=== PATIENT | female | born 1950 | race Hispanic/Latino ===

== ENCOUNTER 2017-08-26 01:42 | Inpatient (IN) | payer MEDICARE, MEDICAID ==
[~2017-08-26] VITALS: Ht 152.4 cm; Wt 81.7 kg
[2017-08-27] VITALS (13 sets, daily range): BP systolic 113–139; BP diastolic 58–76
[2017-08-27] MEDS ORDERED: HYDRALAZINE HCL 20 MG/ML VIAL IV PRN (05:15)
[2017-08-27] MEDS ORDERED: ONDANSETRON HCL 4 MG/2 ML VIAL IV PRN (05:15)
[2017-08-27] MEDS ORDERED: ACETAMINOPHEN 325 MG TAB PO PRN (05:15)
[2017-08-27 05:45] LABS: HEMATOCRIT 38.9 % (36-48); MEAN CORPUSCULAR HGB CONC 33.7 g/dL (32.0-36.0); PLATELET COUNT (AUTO) 273 K/uL (130-400); RED BLOOD CELL COUNT(AUTO) 4.23 MIL/uL (4.00-5.50); RED CELL DISTRIBUTION WIDTH 12.7 % (11.0-15.5); WHITE BLOOD COUNT (AUTO) 8.9 K/uL (4.8-10.8)
[2017-08-27 05:57] LABS: INR 0.94 (0.85-1.15); PARTIAL THROMBOPLASTIN TIME 25.2 SEC (26.3-35.5); PROTHROMBIN TIME 9.9 SEC (9.6-11.6)
[2017-08-27] MEDS: INSULIN LISPRO 100 UNIT/ML 3ML SQ SCH ×3 (06:04→16:30)
[2017-08-27 06:09] LABS: ALBUMIN 3.5 g/dL (3.5-5.0); BILIRUBIN,TOTAL 0.6 mg/dL (0.2-1.0); CREATININE 0.5 mg/dL (0.5-1.5); POTASSIUM 3.7 mmol/L (3.5-5.1); TOTAL PROTEIN, SERUM 7.4 g/dL (6.0-8.3)
[2017-08-27] MEDS ORDERED: OMEP20CA10 PO (06:54)
[2017-08-27] MEDS ORDERED: FOLI1TAB15 PO (06:54)
[2017-08-27] MEDS ORDERED: HYDR-4060 PO (06:54)
[2017-08-27] MEDS ORDERED: SIMV40TA59 PO (06:54)
[2017-08-27] MEDS ORDERED: VALS1TAB79 PO (06:54)
[2017-08-27] MEDS ORDERED: EZET10TA26 PO (06:54)
[2017-08-27] MEDS ORDERED: METF750T2 PO (06:54)
[2017-08-27] MEDS ORDERED: BRIM5DRO OP (06:54)
[2017-08-27] MEDS ORDERED: GABA-531 PO (06:54)
[2017-08-27] MEDS ORDERED: LEFL10TA15 PO (06:54)
[2017-08-27] MEDS ORDERED: ENAL2.5T PO (06:54)
[2017-08-27] MEDS ORDERED: AMLO10TA2 PO (06:54)
[2017-08-27] MEDS ORDERED: CALC-1009 PO (06:54)
[2017-08-27 07:33] LABS: BASOPHILS % (MANUAL) 2 % (0-2); LYMPHOCYTES % (MANUAL) 45 % (22-44); MAN.DIFF COMMENT-IMPRESSION MANUAL DIFFERENTIAL; MONOCYTES % (MANUAL) 6 % (2-9); PLATELET MORPHOLOGY COMMENT ADEQUATE; SEGMENTED NEUTROPHILS % 47 % (40-70)
[2017-08-27] MEDS ORDERED: FAMOTIDINE 20MG TAB 20 MG TAB PO SCH (09:00)
[2017-08-27] MEDS ORDERED: NITROGLYCERIN 5 MG/ML 10 ML VIAL IV ONE (15:20)
[2017-08-27] MEDS ORDERED: IOPAMIDOL-370 100 ML VIAL IV ONE (15:20)
[2017-08-27] MEDS ORDERED: MIDAZOLAM HCL 1 MG/ML 2ML VIAL ONE (15:20)
[2017-08-27] MEDS ORDERED: BIVALIRUDIN 250 MG/VIAL IV ONE (15:20)
[2017-08-27] MEDS ORDERED: ISOVUE-370 50ML VIAL IV ONE (15:20)
[2017-08-27] MEDS ORDERED: HEPARIN SODIUM 1000UNIT/ML 10ML VIAL ONE (15:20)
[2017-08-27] MEDS ORDERED: LIDOCAINE HCL 2% 20ML ONE (15:21)
[2017-08-27] MEDS ORDERED: MORPHINE SULFATE 2 MG/ML 1ML SYG ONE (15:21)
[2017-08-27] MEDS ORDERED: SODIUM CHLORIDE 0.9% 1000ML 1,000 ML IV SCH (16:07)
== END 2017-08-27 21:49 | disposition home or self-care (01) | DRG 287 ==
LOC: EDHIP 08-27 01:42 → 2AH 08-27 01:47
PROVIDERS: ADMIT Family Medicine; ATTEND Family Medicine
PROC: 4A023N7 Measurement of Cardiac Sampling and Pressure, Left Heart, Percutaneous Approach (ICD-10-PCS; principal; 2017-08-27)
PROC: B2111ZZ Fluoroscopy of Multiple Coronary Arteries using Low Osmolar Contrast (ICD-10-PCS; 2017-08-27)
PROC: B2151ZZ Fluoroscopy of Left Heart using Low Osmolar Contrast (ICD-10-PCS; 2017-08-27)
DX: I25.119 Atherosclerotic heart disease of native coronary artery with unspecified angina pectoris (principal); E11.9 Type 2 diabetes mellitus without complications; E66.9 Obesity, unspecified; E78.5 Hyperlipidemia, unspecified; I10 Essential (primary) hypertension; Z90.710 Acquired absence of both cervix and uterus; Z95.5 Presence of coronary angioplasty implant and graft; Z68.35 Body mass index [BMI] 35.0-35.9, adult; Z88.1 Allergy status to other antibiotic agents
CPT/HCPCS: 36415; 80053; 80061; 82948; 85025; 85610; 85730; 93458; 99152; 99153; C1760; C1894; J0583; J1644; J2250; J3490; Q9967

== ENCOUNTER 2023-11-18 06:50 | Day surgery (SDC) | payer MEDICARE ==
[2023-11-18] VITALS (11 sets, daily range): BP systolic 89–155; BP diastolic 54–74; PULSE 58–76; RESP 13–18
[~2023-11-18] VITALS: Ht 152.4 cm; Wt 88.9 kg
[~2023-11-18 06:50] MED LIST: AMLO-258 PO; BRIM5DRO OP; CALC-1009 PO; ENAL2.5T71 PO; EZET10TA48 PO; FOLI1TAB15 PO; GABA-531 PO; HYDR-4060 PO; LEFL10TA19 PO; METF750T46 PO; OMEP20CA12 PO; SIMV40TA59 PO; VALS1TAB80 PO
[2023-11-18] MEDS ORDERED: DAPA10TA PO (08:02)
[2023-11-18] MEDS ORDERED: LEVO25CA4 PO (08:02)
[2023-11-18] MEDS ORDERED: LOSA1TAB54 PO (08:02)
[2023-11-18] MEDS ORDERED: PRAV40TA3 PO (08:02)
[2023-11-18] MEDS ORDERED: HYDR25TA67 PO (08:02)
[2023-11-18] MEDS ORDERED: AMLO-257 PO (08:02)
[2023-11-18] MEDS: 0.9%NACL 1000ML 1,000 ML IV ONE (08:08)
[2023-11-18] MEDS ORDERED: PROPOFOL 10 MG/ML 20ML VIAL IV ONE (11:23)
== END 2023-11-18 13:15 | disposition home or self-care (01) ==
LOC: ENDO 06:50 → DAH 06:50 → ENDO 13:15
PROVIDERS: ATTEND Internal Medicine Gastroenterology
DX: R93.3 Abnormal findings on diagnostic imaging of other parts of digestive tract (principal); K29.50 Unspecified chronic gastritis without bleeding; K31.A0 Gastric intestinal metaplasia, unspecified; K86.2 Cyst of pancreas; K31.89 Other diseases of stomach and duodenum; R10.12 Left upper quadrant pain; E11.9 Type 2 diabetes mellitus without complications; I10 Essential (primary) hypertension; E78.5 Hyperlipidemia, unspecified; M19.90 Unspecified osteoarthritis, unspecified site; E66.9 Obesity, unspecified; Z68.38 Body mass index [BMI] 38.0-38.9, adult; Z88.8 Allergy status to other drugs, medicaments and biological substances; Z82.49 Family history of ischemic heart disease and other diseases of the circulatory system; Z88.2 Allergy status to sulfonamides; Z79.899 Other long term (current) drug therapy; Z90.49 Acquired absence of other specified parts of digestive tract; Z90.710 Acquired absence of both cervix and uterus
CPT/HCPCS: 43259; 82948 ×2; 43239; J7030; J2704; A4620; A4215; A4223; A7002; A4222; A4221; A4663; A4606; J3490

== ENCOUNTER → 2024-05-04 | Outpatient (CLI) | payer MEDICARE ==
[~2024-05-04] MED LIST changes: +AMLO-257 PO; -AMLO-258 PO; -BRIM5DRO OP; -CALC-1009 PO; +DAPA10TA PO; -ENAL2.5T71 PO; -GABA-531 PO; +GADOTERATE MEGLUMINE 10 MMOL/20 ML VIAL IV ONE; -HYDR-4060 PO; +HYDR25TA67 PO; -LEFL10TA19 PO; +LEVO25CA4 PO; +LOSA1TAB54 PO; -METF750T46 PO; -OMEP20CA12 PO; +PRAV40TA3 PO; -SIMV40TA59 PO; -VALS1TAB80 PO
== END | disposition home or self-care (01) ==
LOC: RAH 08:43
PROVIDERS: ATTEND Internal Medicine Gastroenterology
DX: N28.1 Cyst of kidney, acquired (principal); R93.3 Abnormal findings on diagnostic imaging of other parts of digestive tract
CPT/HCPCS: 74183; A9575

== ENCOUNTER → 2024-12-09 | Outpatient (CLI) | payer MEDICARE ==
[~2024-12-09] MED LIST changes: -GADOTERATE MEGLUMINE 10 MMOL/20 ML VIAL IV ONE; +IOHEXOL 350 MG/ML 100ML INFUS..BTL IV ONE; -LEVO25CA4 PO; +LEVO25CA5 PO
--- NOTE | 2024-12-09 14:22 | HMCIMG ---
CT ABDOMEN WITH CONTRAST Clinical Information: Abnormal findings on diagnostic imaging of othe/ PANCREATIC PROTOCOL Comparison: None Technique: Routine helical scanning at 5mm collimation through the abdomen was performed after oral contrast administration. The examination was done before and after IV contrast administration as well. Intermediate and 7 minute delayed post IV contrast administration images were performed, for adequate contrast distention of the urinary collecting systems, ureters and the urinary bladder. Findings: No evidence of nephro or ureterolithiasis is found. No hydronephrosis or ureteral dilatation is seen. The lung bases are clear. The stomach is unremarkable. There is no evidence of gastric dilatation. No blastic thickening is noted to suggest inflammation or tumor. There is no perforation. There is no gastric outlet obstruction. There is no ulceration. The spleen is unremarkable. It is not enlarged. The pancreas shows normal anatomy. It is not fatty replaced. It shows no lesions. The pancreatic duct is not dilated. Triphasic imaging of the pancreas demonstrates normal anatomy in all 3 phases without evidence of masses or worrisome lesions. The gallbladder is surgically absent. The adrenal glands are unremarkable. There is no enlargement. No lesions are noted. The liver is unremarkable. It shows no focal masses. The visualized segments of large and small bowel appear unremarkable. Postoperative changes of the lumbar spine. IMPRESSION: NEGATIVE CT SCAN OF THE ABDOMEN. NO RENAL STONES. NO ACUTE PATHOLOGY OR INFLAMMATION SEEN. Normal pancreatic scan. This study was performed using dose reduction techniques to include automated exposure control and/or adjustment of the mA and/or kV according to patient size.
== END | disposition home or self-care (01) ==
LOC: RAH 09:23
PROVIDERS: ATTEND Internal Medicine Gastroenterology
DX: R93.3 Abnormal findings on diagnostic imaging of other parts of digestive tract (principal); Z90.49 Acquired absence of other specified parts of digestive tract; Z98.890 Other specified postprocedural states
CPT/HCPCS: 74170; Q9967

== ENCOUNTER → 2025-01-16 | Outpatient (CLI) | payer MEDICARE ==
[~2025-01-16] MED LIST changes: -IOHEXOL 350 MG/ML 100ML INFUS..BTL IV ONE; -PRAV40TA3 PO; +PRAV40TA62 PO
--- NOTE | 2025-01-16 16:48 | HMCIMG ---
UPPER GI TRACT, WO KUB REASON: EPIGASTRIC PAIN. COMPARISON: None TECHNIQUE: Upper GI series was performed. FINDINGS: There is no obstruction to the antegrade passage of barium from mouth through jejunum. A normal esophageal stripping wave is seen. There is no evidence of hiatal hernia. Gastroesophageal reflux is seen to the level of the thoracic esophagus. Stomach is well distended without ulceration or masses. Duodenal bulb and duodenal sweep are unremarkable. IMPRESSION: Gastroesophageal reflux to the level of the upper thoracic esophagus. No obstruction.
== END | disposition home or self-care (01) ==
LOC: RAH 08:58
PROVIDERS: ATTEND Internal Medicine Gastroenterology
DX: K21.9 Gastro-esophageal reflux disease without esophagitis (principal); R10.13 Epigastric pain
CPT/HCPCS: 74240

== ENCOUNTER → 2025-05-23 | Outpatient (CLI) | payer MEDICARE ==
[~2025-05-23] MED LIST changes: -EZET10TA48 PO; +EZET10TA80 PO; +GADOTERATE MEGLUMINE 10 MMOL/20 ML VIAL IV ONE
--- NOTE | 2025-05-23 21:32 | HMCIMG ---
EXAM: MRI ABDOMEN WITHOUT AND WITH INTRAVENOUS CONTRAST Technique: Multiplanar, multisequence magnetic resonance imaging of the abdomen was performed without and with intravenous contrast, including T1-weighted in-phase and opposed-phase, T2-weighted, diffusion-weighted imaging with apparent diffusion coefficient maps, and dynamic post-contrast arterial, portal venous, and delayed phases. Contrast: Standard dose of intravenous contrast administered. Clinical Information: Abnormal findings on prior abdominal imaging. Comparison: None. Findings: Liver: Liver length measures approximately 16.5 cm (mild hepatomegaly). Diffuse signal loss on opposed-phase relative to in-phase imaging consistent with hepatic steatosis. No focal hepatic mass or suspicious enhancing lesion. Hepatic contour is smooth. Gallbladder and biliary tree: Post-cholecystectomy status. Common bile duct measures approximately 10 mm with smooth distal tapering; no intraductal filling defect identified on the provided sequences. Pancreas: Mild pancreatic atrophy. Main pancreatic duct measures approximately 1.5 mm without beading or abrupt cutoff. No mass or peripancreatic inflammatory change. Spleen: Normal size and signal without focal lesion. Adrenals: Normal morphology bilaterally without nodularity. Kidneys and ureters: Normal renal size and enhancement. Multiple tiny subcentimeter simple cysts in both kidneys. No hydronephrosis or suspicious renal mass. Stomach and duodenum: Normal caliber and wall thickness. Small bowel: Normal caliber without mural thickening. Colon and appendix: Visualized colonic segments are unremarkable. Appendix not specifically visualized, with no right lower quadrant inflammatory change. Peritoneum and mesentery: No ascites, peritoneal nodularity, or mesenteric edema. Lymph nodes: No pathologically enlarged abdominal lymph nodes. Retroperitoneum and vasculature: Aorta and inferior vena cava are normal in course and caliber. No aneurysm or varix identified. Pelvic organs (limited field): No acute abnormality within the limited imaged pelvis. Abdominal wall/soft tissues: Unremarkable. Osseous structures: Degenerative changes in the visualized spine. Transpedicular screw fixation noted in the upper lumbar spine without complication in the imaged field. Lung bases: Clear on limited views. Impression: 1. Mild hepatomegaly with diffuse hepatic steatosis; no focal hepatic lesion identified. 2. Post-cholecystectomy with common bile duct measuring approximately 10 mm and smooth distal tapering???appearance can be within expected post-cholecystectomy range; correlate with liver function tests and symptoms. If cholestasis is suspected, right upper quadrant ultrasound or magnetic resonance cholangiopancreatography may be obtained. 3. Mild pancreatic atrophy with normal-caliber main pancreatic duct (approximately 1.5 mm); no evidence of pancreatitis or mass. 4. Tiny bilateral simple renal cysts; no hydronephrosis or suspicious renal lesion. 5. Prior upper lumbar transpedicular screw fixation and degenerative spinal changes, incidentally noted. /[place]
== END | disposition home or self-care (01) ==
LOC: RAH 13:31
PROVIDERS: ATTEND Internal Medicine Gastroenterology
DX: K76.0 Fatty (change of) liver, not elsewhere classified (principal); N28.1 Cyst of kidney, acquired; M47.816 Spondylosis without myelopathy or radiculopathy, lumbar region; K86.89 Other specified diseases of pancreas; R93.3 Abnormal findings on diagnostic imaging of other parts of digestive tract; Z90.49 Acquired absence of other specified parts of digestive tract
CPT/HCPCS: 74183; A9575